=== PATIENT | male | born 1945 | race Caucasian/White ===

== ENCOUNTER 2019-06-13 06:25 | Day surgery (SDC) | payer MEDICARE ==
[~2019-06-13] VITALS: Ht 175.3 cm; Wt 107.1 kg
[2019-06-13] MEDS ORDERED: BACL10 PO (07:02)
[2019-06-13] MEDS ORDERED: LISI5 (07:03)
[2019-06-13] MEDS ORDERED: METO25ER (07:03)
[2019-06-13] MEDS ORDERED: Lasix20 MG PO (07:03)
[2019-06-13] MEDS ORDERED: POTA10T PO (07:03)
[2019-06-13] MEDS ORDERED: Norco 10-325 T1 EACH (07:04)
[2019-06-13] MEDS ORDERED: CLOP75 PO (07:04)
[2019-06-13] MEDS ORDERED: SIMV80 PO (07:04)
== END 2019-06-13 08:28 | disposition home or self-care (01) ==
LOC: ORSCSDS 06:25
PROVIDERS: Orthopaedic Surgery
PROC: 01N50ZZ Release Median Nerve, Open Approach (ICD-10-PCS; principal; 2019-06-13 07:30)
DX: G56.01 Carpal tunnel syndrome, right upper limb (principal); I25.10 Atherosclerotic heart disease of native coronary artery without angina pectoris; E66.9 Obesity, unspecified; Z68.34 Body mass index [BMI] 34.0-34.9, adult; Z79.01 Long term (current) use of anticoagulants; Z79.899 Other long term (current) drug therapy
CPT/HCPCS: J2250; J2704; J3010; J7120

== ENCOUNTER 2019-07-23 08:20 | Inpatient (IN) | payer MEDICARE ==
[~2019-07-23] VITALS: Ht 175.3 cm; Wt 102.9 kg
[~2019-07-23 08:20] MED LIST: BACL10 PO; CLOP75 PO; LISI5 PO; Lasix20 MG PO; METO25ER PO; Norco 10-325 T1 EACH PO; POTA10T PO; SIMV80 PO
[2019-07-23] MEDS ORDERED: Aspirin EC81 MG PO (08:40)
[2019-07-23] MEDS ORDERED: NITR.4SL SL (08:40)
[2019-07-23 08:44] LABS: Base Excess Venous -4.9 mmol/L; Bicarbonate Venous 20.5 mmol/L (24.0-30.0); PCO2 Venous 37.8 mmHg (38-42); PO2 Venous 51.2 mmHg (38-42); pH Blood Venous 7.35 (7.34-7.37)
[2019-07-23 08:45] LABS: BASOPHILS ABSOLUTE AUTO 0.04 K/mm3 (0.00-0.23); BASOPHILS PERCENT AUTO 0 % (0-2); EOSINOPHILS ABSOLUTE AUTO 0.18 K/mm3 (0.00-0.68); EOSINOPHILS PERCENT AUTO 2 % (0-6); Hematocrit 41.3 % (37.0-53.0); Hemoglobin 13.6 g/dL (13.5-17.5); IMMATURE GRAN ABSOLUTE AUTO 0.05 K/mm3 (0.00-0.10); IMMATURE GRAN PERCENT AUTO 0 % (0-1); LYMPHOCYTES ABSOLUTE AUTO 1.43 K/mm3 (0.84-5.20); LYMPHOCYTES PERCENT AUTO 12 % (21-46); MONOCYTES ABSOLUTE AUTO 1.18 K/mm3 (0.16-1.47); MONOCYTES PERCENT AUTO 10 % (4-13); Mean Corpuscular HGB 37.5 pg (26.0-34.0); Mean Corpuscular HGB Conc 32.9 g/dL (31.5-36.5); Mean Corpuscular Volume 114 fL (80-100); Mean Platelet Volume 9.9 fL (9.1-12.4); NEUTROPHILS ABSOLUTE AUTO 8.69 K/mm3 (1.96-9.15); NEUTROPHILS PERCENT AUTO 75 % (41-73); Platelet Count 137 K/mm3 (150-400); RDW Coefficient Variation 13.2 % (11.7-14.2); RDW Standard Deviation 56.2 fL (35.1-46.3); Red Blood Cell Count 3.63 M/mm3 (4.30-5.90); White Blood Cell Count 11.57 K/mm3 (4.00-11.30)
[2019-07-23 09:01] LABS: Alanine Aminotransfer (ALT/SGP 22 U/L (12-78); Albumin, Blood 3.3 g/dL (3.4-5.0); Albumin/Globulin Ratio 0.9 (0.8-1.8); Alk Phos 100 U/L (50-136); Anion Gap 9 mmol/L (6-16); Aspartate Aminotrans (AST/SGOT 32 U/L (12-37); Bilirubin, Total 2.8 mg/dL (0.1-1.0); Blood Urea Nitrogen 37 mg/dL (8-24); Bun/Creatinine Ratio 30.3 (12.0-20.0); CO2, Blood 21 mmol/L (21-32); Calcium, Blood 8.3 mg/dL (8.5-10.1); Chloride, Blood 113 mmol/L (98-108); Creatinine, Blood 1.22 mg/dL (0.60-1.20); Globulin, Blood 3.7 g/dL (2.2-4.0); Glomerular Filtration Rate >60 (60-); Glucose, Blood 125 mg/dL (70-99); Potassium, Blood 4.9 mmol/L (3.5-5.5); Sodium, Blood 143 mmol/L (136-145); Troponin I 0.366 ng/mL (0.000-0.040)
[2019-07-23] MEDS ORDERED: TRIDERM28.4 GM TOP (11:56)
--- NOTE | 2019-07-23 13:22 | NUR ---
PT ARRIVED TO THE ROOM AT APPROXIMATELY 1250. PT ALERT AND ORIENTED. FAMILY PRESENT FOR SUPPORT. VSS. PT ON BIPAP AND APPEARS TO BE TOLERATING WELL. WILL CONTINUE TO MONITOR.
--- NOTE | 2019-07-23 14:59 | NUR ---
DR. DE LA ROSA NOTIFIED OF TROPONIN OF 0.421. PT DENIES CHEST PAIN. WILL CONTINUE TO MONITOR.
--- NOTE | 2019-07-23 15:22 | NUR ---
AFTERNOON ASSESSMENT NO CHANGES TO REPORT SINCE INITIAL ASSESSMENT. PT REMAINS ON BIPAP. WILL CONTINUE TO MONITOR.
--- NOTE | 2019-07-23 18:20 | NUR ---
SHIFT SUMMARY PT HAS IMPROVED SINCE ARRIVING TO THE UNIT. HE HAS BEEN ABLE TO COME OFF BIPAP FOR MEALS AND WHILE VISITING WITH FAMILY. PT REQUIES HIGH FLOW 02 WHEN OFF BIPAP. PT WILL CONTINUE TO NEED BIPAP WHILE SLEEPING. PT TOLERATE THE BIPAP WELL. PT HAS VOIDED WELL THIS SHIFT AND IS USING THE URINAL. PT IS ABLE TO INDEPENDENTLY REPOSITION HIMSELF IN BED. FAMILY HAS BEEN PRESENT FOR SUPPORT. VSS. WILL MONITOR UNTIL REPORT TO ONCOMING RN.
[2019-07-24 04:04] LABS: BASOPHILS ABSOLUTE AUTO 0.02 K/mm3 (0.00-0.23); BASOPHILS PERCENT AUTO 0 % (0-2); EOSINOPHILS ABSOLUTE AUTO 0.19 K/mm3 (0.00-0.68); EOSINOPHILS PERCENT AUTO 2 % (0-6); Hematocrit 34.1 % (37.0-53.0); Hemoglobin 11.5 g/dL (13.5-17.5); IMMATURE GRAN ABSOLUTE AUTO 0.03 K/mm3 (0.00-0.10); IMMATURE GRAN PERCENT AUTO 0 % (0-1); LYMPHOCYTES ABSOLUTE AUTO 1.41 K/mm3 (0.84-5.20); LYMPHOCYTES PERCENT AUTO 16 % (21-46); MONOCYTES ABSOLUTE AUTO 1.16 K/mm3 (0.16-1.47); MONOCYTES PERCENT AUTO 13 % (4-13); Mean Corpuscular HGB 37.2 pg (26.0-34.0); Mean Corpuscular HGB Conc 33.7 g/dL (31.5-36.5); Mean Platelet Volume 10.7 fL (9.1-12.4); NEUTROPHILS PERCENT AUTO 68 % (41-73); Platelet Count 113 K/mm3 (150-400); RDW Coefficient Variation 13.5 % (11.7-14.2); RDW Standard Deviation 54.8 fL (35.1-46.3); Red Blood Cell Count 3.09 M/mm3 (4.30-5.90); White Blood Cell Count 8.81 K/mm3 (4.00-11.30)
[2019-07-24 04:15] LABS: Mean Corpuscular Volume 110 fL (80-100)
[2019-07-24 04:29] LABS: Anion Gap 8 mmol/L (6-16); Blood Urea Nitrogen 42 mg/dL (8-24); Bun/Creatinine Ratio 34.7 (12.0-20.0); CO2, Blood 23 mmol/L (21-32); Calcium, Blood 8.2 mg/dL (8.5-10.1); Chloride, Blood 109 mmol/L (98-108); Creatinine, Blood 1.21 mg/dL (0.60-1.20); Glomerular Filtration Rate >60 (60-); Glucose, Blood 106 mg/dL (70-99); Potassium, Blood 4.4 mmol/L (3.5-5.5); Sodium, Blood 140 mmol/L (136-145)
--- NOTE | 2019-07-24 06:33 | NUR ---
SHIFT SUMMARY PATIENT PLEASENT AND COOPERATIVE THROUGHOUT THE NIGHT. PATIENT APPEARED TO SLEEP WELL LAST NIGHT. PATIENT ON ARIVO WHILE AWAKE AND WAS ON THE BIPAP WITH CPAP SETTINGS. PATIENT REPORTS THAT HE FEELS HIS BREATHING IS FEELING MUCH BETTER TONIGHT. PATIENT CURRENTLY APPEARS TO BE SLEEPING. WILL CONTINUE TO MONITOR PATIENT AND REPORT TO ONCOMING RN.
--- NOTE | 2019-07-24 11:43 | NUR ---
Echocardiogram completed.
--- NOTE | 2019-07-24 11:55 | NUR ---
ASSUMED CARE APPROXIMATELY 0700; PT A&O X4; PLEASANT AND COMPLIANT; PT ON AIRVO W/ O2 SATS >93; RESPIRATORY THERAPIST IN TO CHECK SETTINGS; PT STATES HE HAS VASCULAR DISEASE; PT SLEEPING BETWEEN INTERVENTIONS; CALL LIGHT IN REACH; BED IN LOWEST POSITION; WILL CONTINUE TO MONITOR CLOSELY
--- NOTE | 2019-07-24 18:04 | NUR ---
SHIFT SUMMARY PT A&O; PT ON AIRVO SETTINGS MANAGED BY RESPIRATORY THERAPY; PT HAS SLEPT MUCH OF THE DAY AND STATES HE IS TIRED; PT REFUSED TO GET UP TO RECLINER; USES URINAL IN BED; PT ENCOURAGED TO GET UP TO BSC AND INCREASE TO AMBULATING TO BATHROOM; PT STATED HE WOULD TRY THAT TOMORROW; PT STATES HE HAS CHRONIC BACK AND JOINT PAIN; MEDICATED PER EMAR AND AGAIN ENCOURAGED TO REPOSITION; CALL LIGHT IN REACH; BED IN LOWEST POSITION; WILL CONTINUE TO MONITOR UNTIL HAND OFF TO NOC RN
--- NOTE | 2019-07-25 05:39 | NUR ---
END OF SHIFT SUMMARY NO ACUTE CHANGES THIS SHIFT. VSS. PT REMAINS ON AIRVO, 30L. 58% FIO2. BREATHING EASILY. PT DENIES CP. PT HAS BEEN USING URINAL. HAS BEEN RESTING IN BED QUIETLY FOR MAJORITY OF SHIFT. HAS USED CALL LIGHT APPROPRIATELY. WILL CONTINUE TO MONITOR UNTIL SHIFT CHANGE.
--- NOTE | 2019-07-25 09:58 | NUR ---
ASSUMED CARE APPROXIMATELY 0700; PT A&O; DENIES CHEST PAIN; C/O CHRONIC BACK PAIN; PT REPOSITIONED AND MEDICATED PER EMAR; AT BEDSIDE; MEAL TRAY ORDERED FOR PT; PT ENCOURAGED TO AMBULATE; PT DENIES NEEDS AT THIS TIME; CALL LIGHT IN REACH; BED IN LOWEST POSITION; WILL CONTINUE TO MONITOR CLOSELY
--- NOTE | 2019-07-25 19:38 | NUR ---
PT A&O X4; SITTING IN RECLINER; PT ON 13L HIGH FLOW NC; O2 SATS >92; RESPIRATORY THERAPY TO BEDSIDE TO ASSIST W/ NC SETTINGS; PT DENIES CHEST PAIN; DENIES NEEDS AT THIS TIME; CALL LIGHT IN REACH; HAND OFF GIVEN TO NOC RN
--- NOTE | 2019-07-25 21:48 | NUR ---
ASSUMED CARE OF PATIENT AT APPROXIMATELY 1900 FROM WALE Barrett RN. PATIENT ALERT AND ORIENTED X4. PATIENT REPORTS CHRONIC PAIN IN HIS SHOULDERS, KNEES AND BACK; MEDICATED PER EMAR. PATIENT SITTING IN RECLINER DURING BEDSIDE REPORT. PATIENT DENIES NUMBNESS, TINGLING, DIZZINESS AND NAUSEA. PATIENT REPORTS HE WILL SLEEP IN RECLINER TONIGHT. NSR W/ PAC ON TELE; OXYGEN SATURATION ABOVE 90% ON 13LPM VIA HF NC OR AIRVO. DYSPNEA WITH ACTIVITY; REPORTS BLOOD TINGED SPUTUM SINCE BEFORE ADMIT; OXYGEN SATURATION DROPS WITH AMBULATION. PATIENT USES URINAL CHAIRSIDE. PIV X2 S/L. PATIENT CURRENTLY RESTING IN RECLINER; CALL LIGHT IN REACH; BED IN LOWEST POSISTION; WILL CONTINUE TO MONITOR AND ASSESS UNTIL END OF SHIFT.
[2019-07-26 04:43] LABS: Hematocrit 33.1 % (37.0-53.0); Mean Corpuscular HGB 36.8 pg (26.0-34.0); Mean Corpuscular HGB Conc 33.2 g/dL (31.5-36.5); Mean Corpuscular Volume 111 fL (80-100); Mean Platelet Volume 10.3 fL (9.1-12.4); Platelet Count 123 K/mm3 (150-400); RDW Coefficient Variation 12.9 % (11.7-14.2); Red Blood Cell Count 2.99 M/mm3 (4.30-5.90); White Blood Cell Count 8.04 K/mm3 (4.00-11.30)
[2019-07-26 04:59] LABS: Anion Gap 8 mmol/L (6-16); Blood Urea Nitrogen 44 mg/dL (8-24); Bun/Creatinine Ratio 38.3 (12.0-20.0); CO2, Blood 26 mmol/L (21-32); Chloride, Blood 106 mmol/L (98-108); Creatinine, Blood 1.15 mg/dL (0.60-1.20); Glomerular Filtration Rate >60 (60-); Glucose, Blood 107 mg/dL (70-99); Potassium, Blood 3.9 mmol/L (3.5-5.5); Sodium, Blood 140 mmol/L (136-145)
--- NOTE | 2019-07-26 06:22 | NUR ---
PATIENT SLEPT ABOUT EIGHT HOURS LAST NIGHT IN THE RECLINER. VSS. NO ACUTE CHANGES TO REPORT. WILL CONTINUE TO MONITOR AND ASSESS UNTIL END OF SHIFT.
--- NOTE | 2019-07-26 19:34 | NUR ---
SHIFT SUMMARY PT A&Ox4, CALM AND COOPERATIVE WITH CARE. PT UP IN CHAIR T/O SHIFT, APPEARS TO BE SLEEPING INTERMITTENTLY. PT REPORTS BACK PAIN THIS AM, MEDICATED x1 PER EMAR. PT SOB WITH EXERTION, STARTED ON 13L O2 VIA NC , TITERATED TO 10L O2 VIA NC T/O SHIFT, PT TOLERATING WELL, SPO2 >90 T/O SHIFT. PT DENIES NAUSEA AND DIZZINESS. PT RECEIVING IV LASIX. VSS. NO OTHER ACUTE CHANGES NOTED DURING SHIFT. REPORT GIVEN TO ONCOMING RN.
--- NOTE | 2019-07-26 20:57 | NUR ---
ASSUMED CARE Assumed care of pt at approx 1915; pt presents resting in recliner, breathing even and unlabored on 10 humidified HF NC. Pt conversing appropriately with staff, alert and oriented. VSS. Pt complains of 7/10 pain "all over my body". Pt repositioned to comfort and medicated with [place] per emar. Pt also complains of "muscle spasms in my back", heating pad offerend and applied to pt's back with mild relief, baclofan given per emar. No acute concerns to note at this time. Pt calls appropriately with call light, able to make needs known. See shift assessment for detailed systems assessment. Will continue to monitor.
[2019-07-27 04:19] LABS: Anion Gap 6 mmol/L (6-16); Blood Urea Nitrogen 49 mg/dL (8-24); Bun/Creatinine Ratio 39.5 (12.0-20.0); CO2, Blood 26 mmol/L (21-32); Calcium, Blood 7.9 mg/dL (8.5-10.1); Chloride, Blood 105 mmol/L (98-108); Creatinine, Blood 1.24 mg/dL (0.60-1.20); Glomerular Filtration Rate >60 (60-); Glucose, Blood 96 mg/dL (70-99); Sodium, Blood 137 mmol/L (136-145)
--- NOTE | 2019-07-27 05:02 | NUR ---
Shift Summary VSS, no apparent signs of distress, remains alert and oriented, able to make needs known with call light, voids in urinal ind. No acute declines to note from initial shift assessment. Pt remains on hiflow NC at 10L with oxygen sats >95%. No chest pain or pressure. pt with continued harsh cough throughout night. Breathing remains even and unlabored. No concerns to note from overnight. CXR ordered for this AM. Will continue to monitor until day RN assumes care.
--- NOTE | 2019-07-27 10:42 | NUR ---
PT HAS BEEN TRANSFERED TO [facility], HAS A ROOM 340. REPORT WAS GIVEN TO CHEYANNE DUNN, PT WILL BE TAKEN VIA WHEELCHAIR WITH ALL HIS BELONGINGS.
--- NOTE | 2019-07-27 18:19 | NUR ---
SHIFT SUMMARY. 1115 PT TRANSFERED FROM PCU VIA W/C TO MEDICAL FLOOR. A&OX4, INDEPENDENT IN ROOM. PT ON 10L O2 VIA HIGH FLOW NC, PT DENIES DYSPNEA. PT DENIES N/V, GOOD PO INTAKE. PT WITH CHRONIC BACK PAIN MANAGED WELL WITH CURRENT ORDERS. FAMILY AT BEDSIDE THIS AFTERNOON. DR. FUNK IN TO CONSULT THIS AFTERNOON. NO NEW CHANGES OR CONCERNS.
--- NOTE | 2019-07-27 23:19 | NUR ---
07/27/19 2315 PT HAVING COUGHING EPISODES IN WHICH HE CANNOT REST. WAS NOTIFIED EARLIER AND THEN ORDERED MED. SEE MAR FOR COUGH LOZENGE GIVEN. NO OTHER COMPLAINTS.
[2019-07-28 05:14] LABS: BASOPHILS ABSOLUTE AUTO 0.03 K/mm3 (0.00-0.23); BASOPHILS PERCENT AUTO 0 % (0-2); EOSINOPHILS PERCENT AUTO 4 % (0-6); Hematocrit 32.7 % (37.0-53.0); Hemoglobin 10.9 g/dL (13.5-17.5); IMMATURE GRAN ABSOLUTE AUTO 0.01 K/mm3 (0.00-0.10); IMMATURE GRAN PERCENT AUTO 0 % (0-1); LYMPHOCYTES ABSOLUTE AUTO 1.05 K/mm3 (0.84-5.20); LYMPHOCYTES PERCENT AUTO 15 % (21-46); MONOCYTES ABSOLUTE AUTO 0.98 K/mm3 (0.16-1.47); MONOCYTES PERCENT AUTO 14 % (4-13); Mean Corpuscular HGB 36.6 pg (26.0-34.0); Mean Corpuscular HGB Conc 33.3 g/dL (31.5-36.5); Mean Corpuscular Volume 110 fL (80-100); Mean Platelet Volume 10.6 fL (9.1-12.4); NEUTROPHILS PERCENT AUTO 66 % (41-73); Platelet Count 133 K/mm3 (150-400); RDW Coefficient Variation 12.9 % (11.7-14.2); RDW Standard Deviation 52.3 fL (35.1-46.3); Red Blood Cell Count 2.98 M/mm3 (4.30-5.90); White Blood Cell Count 6.97 K/mm3 (4.00-11.30)
[2019-07-28 05:41] LABS: Alanine Aminotransfer (ALT/SGP 26 U/L (12-78); Albumin, Blood 2.5 g/dL (3.4-5.0); Albumin/Globulin Ratio 0.6 (0.8-1.8); Alk Phos 131 U/L (50-136); Anion Gap 8 mmol/L (6-16); Aspartate Aminotrans (AST/SGOT 40 U/L (12-37); Bilirubin, Total 1.5 mg/dL (0.1-1.0); Blood Urea Nitrogen 46 mg/dL (8-24); CO2, Blood 24 mmol/L (21-32); Calcium, Blood 8.2 mg/dL (8.5-10.1); Chloride, Blood 105 mmol/L (98-108); Creatinine, Blood 1.07 mg/dL (0.60-1.20); Glomerular Filtration Rate >60 (60-); Glucose, Blood 106 mg/dL (70-99); Potassium, Blood 4.3 mmol/L (3.5-5.5); Sodium, Blood 137 mmol/L (136-145); Total Protein, Blood 6.5 g/dL (6.4-8.2)
--- NOTE | 2019-07-28 06:31 | NUR ---
07/28/19 0630 SITTING UP IN CHAIR AND "FEELING GOOD". PAIN MED "HELPED A LOT" TO CONTROL HIS PAIN. VITALS STABLE. TAKING ORAL FLUIDS WELL. UNEVENTFUL NIGHT.
--- NOTE | 2019-07-28 15:01 | NUR ---
Initial Visit: Palliative Care Consult for Advanced Care Planning. Pt is A&OX4 and denies pain at this time. He reports mild but manageable dyspnea. He reports oxygen is helping with management of SOB. Pt coughing intermittently throughout visit. Pt reports mild but manageable anxiety. Engaged in therapeutic discussion regarding Advanced Care Planning. Pt reports living at home with his and son. He reports his is bed bount who requires considerable assistance with her care. Pt reports being the primary caregiver for Pt but receives help from his son. Discussed plan for Pt to F/U with workforce planning analyst as out Pt. Educated on the importance of routine discussion with PCP and specialists regarding health and comorbidities in order to plan accordingly. Discussed POLST and Advanced Directives. Pt expresses interest in both. Educated on life sustaining measures including risk factors. Pt requests to complete POLST today and will complete Advanced Directive at home with his daughter. Assisted Pt with completing POLST. Pt V/U of each choice. Pt chooses DNR and Limited Treatment. Pt signs POLST. Educated Pt on each section to complete on AD and options for making AD official including notary and witness signatures. Pt reports he will complete at home with his daughter. No other concerns reported at this time. Spoke with bedside nurse Rosales and discussed case. Palliative Care will obtain copy of POLST once signed by .
--- NOTE | 2019-07-28 16:13 | NUR ---
SHIFT SUMMARY. PT CONTINUES WITH DRY COUGH. LUNGS CLEAR. TITRATED DOWN TO 2L NC BY END OF SHIFT. HOME O2 EVAL COMPLETED. DR. FUNK ROUNDED THIS AFTERNOON. NO OTHER CHANGES OR CONCERNS.
--- NOTE | 2019-07-28 19:41 | NUR ---
SHIFT SUMMARY: NO ACUTE CHANGES TO REPORT THIS SHIFT. PT A&O; CALM AND COOPERATIVE WITH CARE; INDEPENDENT IN ROOM. O2 TITRATED TO 2L THIS SHIFT; PT TOLERATING WELL. PULMONOLOGY FOLLOWING. EXPECTED D/C TO HOME 07/29. REPORT GIVEN TO ONCOMING RN.
[2019-07-29 04:57] LABS: Anion Gap 7 mmol/L (6-16); Blood Urea Nitrogen 42 mg/dL (8-24); Bun/Creatinine Ratio 45.3 (12.0-20.0); CO2, Blood 24 mmol/L (21-32); Calcium, Blood 8.4 mg/dL (8.5-10.1); Chloride, Blood 105 mmol/L (98-108); Creatinine, Blood 0.93 mg/dL (0.60-1.20); Glomerular Filtration Rate >60 (60-); Glucose, Blood 93 mg/dL (70-99); Potassium, Blood 4.5 mmol/L (3.5-5.5); Sodium, Blood 136 mmol/L (136-145)
--- NOTE | 2019-07-29 05:49 | NUR ---
SHIFT SUMMARY PT IS A 74 Y/O MALE, ADMITTED FOR ACUTE HYPOXEMIC RESPIRATORY FAILURE. HE IS A&O X 4, AND INDEPENDENT IN THE ROOM. PT IS CURRENTLY ON 2L OF O2 VIA NC, AND SATTING IN THE MID 90S. VITALS STABLE. PT HAD A COARSE, PRODUCTIVE COUGH THROUGH THE NIGHT. HE WAS MEDICATED TWICE WITH PRN HYDROCODONE FOR CHRONIC NECK AND BACK PAIN. NO COMPLAINTS OF ACUTE SOB OR NAUSEA. VITAL SIGNS STABLE. NO OTHER ACUTE CHANGES IN PT CONDITION NOTED. WILL CONTINUE TO MONITOR AND TREAT PER EMAR UNTIL HAND OFF TO DAY SHIFT RN.
[2019-07-29] MEDS ORDERED: LOSA25 PO (10:09)
[2019-07-29] MEDS ORDERED: ALDACTONE25 MG PO (10:10)
[2019-07-29] MEDS ORDERED: AIRDUO RESPICL1 EAC3 INH (10:10)
--- NOTE | 2019-07-29 15:17 | NUR ---
Discharge Summary A/Ox3, pleasant and cooperative with care. Reviewed discharge paperwork and educational materials with patient and daughter (Adriana). Meds faxed to [facility], spironolactone called in to [facility] d/t it being unavailable at [facility] until Wednesday, patient and family aware. Pt discharged to home, escorted via w/c by MEDICAL DEVICE ASSEMBLER, transported by personal vehicle by daughter. They had no questions for me at this time. Personal belongings sent home with patient.
== END 2019-07-29 15:17 | disposition home or self-care (01) | DRG 291 ==
LOC: ER 08:20 → PCU 10:20 → ICUW 10:49 → PCU 12:53 → MEDS 07-27 11:15 → ENPENDDIS 07-29 10:02 → MEDS 07-29 15:17
PROVIDERS: Emergency Medicine; Internal Medicine; ADMIT Internal Medicine
DX: I11.0 Hypertensive heart disease with heart failure (principal); I50.31 Acute diastolic (congestive) heart failure; J96.01 Acute respiratory failure with hypoxia; J44.1 Chronic obstructive pulmonary disease with (acute) exacerbation; E44.1 Mild protein-calorie malnutrition; I25.10 Atherosclerotic heart disease of native coronary artery without angina pectoris; I67.9 Cerebrovascular disease, unspecified; I70.8 Atherosclerosis of other arteries; D50.9 Iron deficiency anemia, unspecified; E78.5 Hyperlipidemia, unspecified; E88.09 Other disorders of plasma-protein metabolism, not elsewhere classified; M19.90 Unspecified osteoarthritis, unspecified site; Z66 Do not resuscitate; Z95.1 Presence of aortocoronary bypass graft; Z87.891 Personal history of nicotine dependence; Z79.02 Long term (current) use of antithrombotics/antiplatelets; Z79.82 Long term (current) use of aspirin; Z79.899 Other long term (current) drug therapy; Z68.33 Body mass index [BMI] 33.0-33.9, adult
CPT/HCPCS: 36415; 71045; 71260; 80048; 80053; 82607; 82728; 82746; 82803; 83540; 83550; 83880; 84145; 84484; 85025; 85027; 93005; 93010; 93306; 94640; 94660; 94760; 94761; 94762; 96374; 99285-25; J1650; J1940; Q9967

== ENCOUNTER → 2020-04-17 | Outpatient (CLI) | payer OTHER ==
[~2020-04-17] MED LIST changes: +AIRDUO RESPICL1 EAC3 INH; +ALDACTONE25 MG PO; +Aspirin EC81 MG PO; +LOSA25 PO; +NITR.4SL SL; +TRIDERM28.4 GM TOP
[2020-04-18 11:11] LABS: U Amphetamine Screen Not Detected; U Barbituate Screen Not Detected; U Benzodiazapine Screen Not Detected; U Cocaine Screen Not Detected; U Methadone Screen Not Detected; U Methamphetamine Screen Not Detected; U Opiates Screen DETECTED
[2020-04-18 11:12] LABS: U Buprenorphine Screen Not Detected; U Cannabinoids Screen Not Detected; U Oxycodone Screen Not Detected; U Phencyclidine Screen Not Detected; U Propoxyphene Screen Not Detected
== END | disposition home or self-care (01) ==
LOC: LAB SHORT 09:06 → LAB 09:06
PROVIDERS: Internal Medicine Hematology & Oncology
DX: Z51.81 Encounter for therapeutic drug level monitoring (principal); Z79.899 Other long term (current) drug therapy; Z91.89 Other specified personal risk factors, not elsewhere classified
CPT/HCPCS: G0480

== ENCOUNTER → 2020-05-19 | Outpatient (CLI) | payer OTHER ==
[2020-05-19 14:28] LABS: BASOPHILS ABSOLUTE AUTO 0.04 K/mm3 (0.00-0.23); BASOPHILS PERCENT AUTO 1 % (0-2); EOSINOPHILS ABSOLUTE AUTO 0.39 K/mm3 (0.00-0.68); EOSINOPHILS PERCENT AUTO 7 % (0-6); Hematocrit 32.1 % (37.0-53.0); Hemoglobin 11.1 g/dL (13.5-17.5); IMMATURE GRAN ABSOLUTE AUTO 0.01 K/mm3 (0.00-0.10); IMMATURE GRAN PERCENT AUTO 0 % (0-1); LYMPHOCYTES ABSOLUTE AUTO 1.23 K/mm3 (0.84-5.20); LYMPHOCYTES PERCENT AUTO 23 % (21-46); MONOCYTES ABSOLUTE AUTO 0.61 K/mm3 (0.16-1.47); MONOCYTES PERCENT AUTO 11 % (4-13); Mean Corpuscular HGB 39.2 pg (26.0-34.0); Mean Corpuscular HGB Conc 34.6 g/dL (31.5-36.5); Mean Corpuscular Volume 113 fL (80-100); Mean Platelet Volume 10.7 fL (9.1-12.4); NEUTROPHILS ABSOLUTE AUTO 3.06 K/mm3 (1.96-9.15); NEUTROPHILS PERCENT AUTO 57 % (41-73); Platelet Count 117 K/mm3 (150-400); RDW Coefficient Variation 13.3 % (11.7-14.2); RDW Standard Deviation 55.1 fL (35.1-46.3); Red Blood Cell Count 2.83 M/mm3 (4.30-5.90); White Blood Cell Count 5.34 K/mm3 (4.00-11.30)
[2020-05-19 14:31] LABS: Bun/Creatinine Ratio 27.5 (12.0-20.0); Calcium, Blood 8.6 mg/dL (8.5-10.1); Creatinine, Blood 1.6 mg/dL (0.60-1.20); Potassium, Blood 4.6 mmol/L (3.5-5.5)
== END | disposition home or self-care (01) ==
LOC: LAB SHORT 14:21 → LAB EV 14:21
PROVIDERS: Physician Assistant Medical
DX: R60.0 Localized edema (principal)
CPT/HCPCS: 80048; 85025; 85379

== ENCOUNTER → 2020-11-28 | Outpatient (CLI) | payer OTHER ==
[2020-11-28 19:29] LABS: U Amphetamine Screen Not Detected; U Barbituate Screen Not Detected; U Benzodiazapine Screen Not Detected; U Buprenorphine Screen Not Detected; U Cannabinoids Screen Not Detected; U Cocaine Screen Not Detected; U Methadone Screen Not Detected; U Methamphetamine Screen Not Detected; U Opiates Screen DETECTED; U Oxycodone Screen Not Detected; U Phencyclidine Screen Not Detected; U Propoxyphene Screen Not Detected
== END ==
LOC: LAB SHORT 17:30 → LAB 17:30
PROVIDERS: Internal Medicine Hematology & Oncology
DX: Z51.81 Encounter for therapeutic drug level monitoring (principal); Z79.899 Other long term (current) drug therapy
CPT/HCPCS: G0480

== ENCOUNTER 2021-05-05 04:49 | Inpatient (IN) | payer OTHER ==
[~2021-05-05] VITALS: Ht 175.3 cm; Wt 97.0 kg
[2021-05-05 05:30] LABS: BASOPHILS ABSOLUTE AUTO 0.04 K/mm3 (0.00-0.23); BASOPHILS PERCENT AUTO 0 % (0-2); EOSINOPHILS ABSOLUTE AUTO 0.02 K/mm3 (0.00-0.68); EOSINOPHILS PERCENT AUTO 0 % (0-6); Hematocrit 36.4 % (37.0-53.0); Hemoglobin 12.2 g/dL (13.5-17.5); IMMATURE GRAN ABSOLUTE AUTO 0.15 K/mm3 (0.00-0.10); IMMATURE GRAN PERCENT AUTO 2 % (0-1); LYMPHOCYTES ABSOLUTE AUTO 1.41 K/mm3 (0.84-5.20); LYMPHOCYTES PERCENT AUTO 15 % (21-46); MONOCYTES ABSOLUTE AUTO 0.41 K/mm3 (0.16-1.47); MONOCYTES PERCENT AUTO 4 % (4-13); Mean Corpuscular HGB 38.6 pg (26.0-34.0); Mean Corpuscular HGB Conc 33.5 g/dL (31.5-36.5); Mean Corpuscular Volume 115 fL (80-100); Mean Platelet Volume 12.1 fL (9.1-12.4); NEUTROPHILS ABSOLUTE AUTO 7.22 K/mm3 (1.96-9.15); NEUTROPHILS PERCENT AUTO 78 % (41-73); NRBC ABSOLUTE 0.05 K/mm3 (0.00-0.02); NRBC Auto 0.5 /100 WBC (0.0-0.2); Platelet Count 128 K/mm3 (150-400); RDW Coefficient Variation 14.3 % (11.7-14.2); RDW Standard Deviation 62.1 fL (35.1-46.3); Red Blood Cell Count 3.16 M/mm3 (4.30-5.90); White Blood Cell Count 9.25 K/mm3 (4.00-11.30)
[2021-05-05 05:57] LABS: BAND PERCENT MAN 9 % (0-8); BASOPHILS PERCENT MAN 0 % (0-2); EOSINOPHILS PERCENT MAN 0 % (0-6); LYMPHOCYTES % ATYPICAL MANUAL 1 % (0-0); LYMPHOCYTES PERCENT MAN 12 % (21-46); MONOCYTES ABSOLUTE MAN 0.09 K/mm3 (0.16-1.47); MONOCYTES PERCENT MAN 1 % (4-13); NEUTROPHILS ABSOLUTE MAN 7.95 K/mm3 (1.96-9.15); SEG NEUTROPHILS PERCENT MAN 77 % (41-73); TOTAL CELLS COUNTED 100
[2021-05-05 06:00] LABS: SARS-Cov-2 (COVID-19) PCR, MMC POSITIVE (NEGATIVE)
[2021-05-05 06:31] LABS: Alanine Aminotransfer (ALT/SGP 50 U/L (12-78); Albumin, Blood 2.8 g/dL (3.4-5.0); Albumin/Globulin Ratio 0.6 (0.8-1.8); Alk Phos 139 U/L (50-136); Anion Gap 18 mmol/L (6-16); Aspartate Aminotrans (AST/SGOT 232 U/L (12-37); Bilirubin, Total 2.6 mg/dL (0.1-1.0); Blood Urea Nitrogen 62 mg/dL (8-24); Bun/Creatinine Ratio 30.4 (12.0-20.0); C-REACTIVE PROTEIN, EXT RANGE >19.000 mg/dL (0.000-0.300); CO2, Blood 14 mmol/L (21-32); Calcium, Blood 8.7 mg/dL (8.5-10.1); Chloride, Blood 99 mmol/L (98-108); Creatinine, Blood 2.04 mg/dL (0.60-1.20); Globulin, Blood 4.4 g/dL (2.2-4.0); Glomerular Filtration Rate 32 (60-); Glucose, Blood 125 mg/dL (70-99); Potassium, Blood 4.7 mmol/L (3.5-5.5); Sodium, Blood 131 mmol/L (136-145); Total Protein, Blood 7.2 g/dL (6.4-8.2)
[2021-05-05 06:38] LABS: International Normalized Ratio 1.41; Prothrombin Time Results 14.9 Sec (9.7-11.5)
--- NOTE | 2021-05-05 09:55 | NUR ---
Placed call to pt's daughter Adriana after speaking to bedside RN regarding pt's current status. The patient is here with Covid, but at this time, his respiratory status is not the biggest issue. His troponin level is high, and he is very hypotensive. Adriana verbalizes understanding, and states she knows her dad's wishes; that he would not want aggressive treatment of any kind. She also states the patient has been declining since his last year, and believes he would prefer comfort care over aggressive treatment, as indicated by his DNR/DNI status. Dr. Cheung in to see patient about 30 minutes ago.
[2021-05-05 11:19] LABS: Source, Urine Catheter
[2021-05-05 12:01] LABS: Free Thyroxine 1.11 ng/dL (0.70-1.60); Thyroid Stimulating Hormone 0.45 uIU/mL (0.360-4.800); Triiodothyronine, Free 0.7 pg/mL (2.18-3.98)
[2021-05-05 12:14] LABS: Appearance, Urine Clear (Clear); Bilirubin, Urine Neg (Neg); Blood, Urine Neg (Neg); Color, Urine Yellow (P-Yellow); Glucose Qualitative, Urine Neg (Neg); Ketones, Urine 1+ (Neg); Leukocyte Esterase, Urine Neg (Neg); Nitrite, Urine Neg (Neg); Protein, Urine 1+ (Neg); Specific Gravity, Urine 1.025 (1.003-1.022); Urobilinogen, Urine 3+ (Normal)
[2021-05-05 12:26] LABS: Creatine Kinase MB 193.5 ng/mL (0.0-3.6)
[2021-05-05 12:33] LABS: Creatine Kinase MB Index 14.2 (0.0-4.0)
--- NOTE | 2021-05-05 15:53 | NUR ---
Echocardiogram performed.
--- NOTE | 2021-05-05 18:13 | NUR ---
SHIFT SUMMARY PT ALERT AND ORIENTED. HR HAS BEEN AFIB 90'S. BP STABLE AT THIS TIME, BUT HAS BEEN HYPOTENSIVE. PT HAS BEEN ON CPAP AT 10 AND 80% FIO2 WITH SATS RANGING FROM 88-93. LS DIM THROUGHOUT. RR 30-40. PT DENIES ANY PAIN. HEP GTT INFUSING PER ORDERS. PT HAS BEEN REPOSTIONED Q2H. DAUGHTER CALLED AND UPDATED THIS SHIFT REQUESTED. WILL CONTINUE TO MONITOR AND REPORT TO ONCOMING RN.
[2021-05-06 04:08] LABS: Hematocrit 33.3 % (37.0-53.0); Hemoglobin 11.7 g/dL (13.5-17.5); Mean Corpuscular HGB 38.5 pg (26.0-34.0); Mean Corpuscular HGB Conc 35.1 g/dL (31.5-36.5); NRBC ABSOLUTE 0.03 K/mm3 (0.00-0.02); NRBC Auto 0.4 /100 WBC (0.0-0.2); Platelet Count 101 K/mm3 (150-400); RDW Standard Deviation 55.9 fL (35.1-46.3); Red Blood Cell Count 3.04 M/mm3 (4.30-5.90)
[2021-05-06 04:19] LABS: Albumin, Blood 2.4 g/dL (3.4-5.0); Albumin/Globulin Ratio 0.6 (0.8-1.8); Bilirubin, Total 2.8 mg/dL (0.1-1.0); Bun/Creatinine Ratio 48.7 (12.0-20.0); Calcium, Blood 7.8 mg/dL (8.5-10.1); Creatinine, Blood 1.5 mg/dL (0.60-1.20); Phosphorus, Blood 3.3 mg/dL (2.5-4.9); Potassium, Blood 4.7 mmol/L (3.5-5.5); Total Protein, Blood 6.4 g/dL (6.4-8.2)
[2021-05-06 04:23] LABS: Troponin I 38.5 ng/mL (0.000-0.040)
[2021-05-06 04:29] LABS: Mean Corpuscular Volume 110 fL (80-100)
[2021-05-06 05:10] LABS: International Normalized Ratio 1.38; Prothrombin Time Results 14.6 Sec (9.7-11.5)
[2021-05-06 05:55] LABS: BAND PERCENT MAN 28 % (0-8); BASOPHILS PERCENT MAN 0 % (0-2); EOSINOPHILS PERCENT MAN 0 % (0-6); LYMPHOCYTES ABSOLUTE MAN 0.89 K/mm3 (0.84-5.20); LYMPHOCYTES PERCENT MAN 11 % (21-46); MONOCYTES PERCENT MAN 5 % (4-13); SEG NEUTROPHILS PERCENT MAN 56 % (41-73); TOTAL CELLS COUNTED 100
--- NOTE | 2021-05-06 06:53 | NUR ---
END OF SHIFT SUMMARY: PATIENT HAD A DECENT NIGHT OF REST. HE HAS BEEN IN AFIB IN THE 90-140S BUT MOSTLY CONTROLLED IN THE 90S. HE SUSTAINED IN THE 140S ONCE AND 5 OF METOPROLOL WAS GIVEN IV AND RESPONDED WELL. TROPONIN COMING DOWN. HE HAS HAD CRITICAL APPT X2 AND PHARM IS ASSISTING WITH THAT. CURRENTLY ON STANDBY UNTIL 629 APTT COMES BACK. REMAINS A/O X4. TOLERATING CURRENT CPAP SETTINGS
--- NOTE | 2021-05-06 09:07 | NUR ---
PHYSICIAN UPDATE PT COUGHING UP BLOOD THIS AM. DARK RED IN COLOR. PHYSICIAN IN ROOM, EXAMINED AMOUNT OF BLOOD IN PT'S MOUTH. PT SUCTIONED TO REMOVE BLOOD FROM MOUTH. ORDERS TO STOP HEPARIN GTT AT THIS TIME. PHYSICIAN AWARE OF PT'S LOW BP AFTER PO METOPROLOL YESTERDAY AM. ORDERS TO GIVE 6.25 MG OF METOPROLOL INSTEAD OF 12.5
[2021-05-06 09:54] LABS: Hematocrit 35.5 % (37.0-53.0); Hemoglobin 12.3 g/dL (13.5-17.5)
--- NOTE | 2021-05-06 11:12 | NUR ---
UPDATE DAUGHTER UPDATED
--- NOTE | 2021-05-06 11:47 | NUR ---
Spoke with care isbell and discussed case. Pt may benefit from discussion regarding goals of care. Pt has stated he is ready to go see his . last year. Pt resting in bed and is on BIPAP. Pt denies pain at this time. Engaged in therapeutic discussion regarding goals of care. Discussed options for treatment including continuing current plan of care or comfort care as an option. Educated on comfort care philosophy. Pt reports he would like to continue current plan of care in hopes of feeling better and going home. Pt reports no other concerns at this time. Relayed wishes to primary RN Bhakti. Bhakti will call Pt's daughter and give update. Palliative Care will remain available.
--- NOTE | 2021-05-06 14:14 | NUR ---
PHYSICIAN NOTIFIED PHYSICIAN AWARE THAT PT'S BNP IS HIGH. NO NEW ORDERS. PLAN TO TRACK.
[2021-05-06 15:27] LABS: Hematocrit 36.4 % (37.0-53.0); Hemoglobin 12.6 g/dL (13.5-17.5)
--- NOTE | 2021-05-06 18:29 | NUR ---
SHIFT SUMMARY\\ PT ALERT AND ORIENTED. PALLIATIVE CARE TO SEE PT THIS AM. PT DOES NOT WANT INVASIVE TREATMENTS. PHYSICIAN AWARE. UPON INITIAL ASSESSMENT THIS AM OF PT, PT HAD LARGE AMOUNT OF BLOOD AND DRIED BLOOD IN MOUTH. PHYSICIAN IN ROOM TO ASSESS. HEPARIN GTT STOPPED. THOROUGH ORAL CARE PROVIDED TO PT Q3-4 HRS. PT UNABLE TO TOLERATE BEING OFF CPAP. RT IN ROOM TO ASSIST IN ORAL CARE TO REMOVE DRIED BLOOD FROM PT'S MOUTH D/T PT DESATING. PT ENCOURAGED TO LAY ON SIDE/PRONE. PT REPORTED CP THIS AM. ORDERS FOR MORPHINE PER PHYSICIAN. PT STATED CP IS BETTER. PT REMOVED CPAP AND SAID "I WANT TO SEE HOW LONG I CAN LAST." PT ALERT AND UNDERSTANDING THAT HE DOES NOT HAVE ADEQUATE OXYGEN LEVELS WHEN REMOVING THE CPAP. STATES HE WILL LEAVE CPAP ON. WILLETT PATENT AND DRAINING. CALL LIGHT WITHIN REACH. PT DECLINES Q 2 TURNS AT TIMES. PT MEDICATED FOR HIGH HR, SEE EMAR. PHYSICIAN ORDER TO GIVE 2.5 MG OF IV METOPROLOL ONCE INSTEAD OF 5MG D/T PT BEING HYPOTENSIVE. MAP REMAINED ABOVE 65. OXYGEN SATURATION MAINTAINED ABOVE 92% ON CPAP AT 12 AND 90% FIO2.
--- NOTE | 2021-05-07 06:29 | NUR ---
PT MAINTAINED O2 SATS >92% ON CPAP W 90%-100% FIO2 THIS SHIFT. PT PULLED HIS MASK OFF SEVERAL TIMES AT THE START OF THE SHIFT RESULTING IN DESATS <60% BUT RECOVERED QUICKLY ONCE MASK PLACED BACK ON. PT HAD NO S/S OF BLEEDING THIS SHIFT. ORAL CARE PROVIDED THROUGHOUT THE SHIFT AND DESPITE AGGRESSIVELY TRYING I WAS UNABLE TO REMOVE ALL OF THE BLOOD FROM THE PT'S TEETH FROM THE PREVIOUS NIGHT. TELE SHOWING AFIB IN THE 130'S SO IV LOPRESSOR GIVEN AND PT'S HR REMAINED IN THE 80'S. PT DENIED ANY CP OR PRESSURE THIS SHIFT. BP WNL AND STABLE THIS SHIFT. PT IS AXO BUT HAD MOMENTS OF CONFUSION THROUGHOUT THE SHIFT. WILL REPORT TO ONCOMING RN.
[2021-05-07 09:10] LABS: Hematocrit 36.3 % (37.0-53.0); Hemoglobin 12.4 g/dL (13.5-17.5); Mean Corpuscular HGB 37.8 pg (26.0-34.0); Mean Corpuscular HGB Conc 34.2 g/dL (31.5-36.5); Mean Corpuscular Volume 111 fL (80-100); Mean Platelet Volume 12.3 fL (9.1-12.4); NRBC ABSOLUTE 0.18 K/mm3 (0.00-0.02); NRBC Auto 1.3 /100 WBC (0.0-0.2); Platelet Count 79 K/mm3 (150-400); RDW Coefficient Variation 14.3 % (11.7-14.2); RDW Standard Deviation 58.4 fL (35.1-46.3); Red Blood Cell Count 3.28 M/mm3 (4.30-5.90); White Blood Cell Count 14.06 K/mm3 (4.00-11.30)
[2021-05-07 09:38] LABS: Albumin, Blood 2.5 g/dL (3.4-5.0); Albumin/Globulin Ratio 0.6 (0.8-1.8); Bilirubin, Total 4.8 mg/dL (0.1-1.0); Bun/Creatinine Ratio 60.7 (12.0-20.0); Calcium, Blood 8.5 mg/dL (8.5-10.1); Creatinine, Blood 1.45 mg/dL (0.60-1.20); Magnesium, Blood 3.2 mg/dL (1.6-2.4); Phosphorus, Blood 3.3 mg/dL (2.5-4.9); Total Protein, Blood 6.5 g/dL (6.4-8.2)
[2021-05-07 09:48] LABS: BASOPHILS PERCENT MAN 0 % (0-2); EOSINOPHILS PERCENT MAN 0 % (0-6); LYMPHOCYTES % ATYPICAL MANUAL 5 % (0-0); LYMPHOCYTES ABSOLUTE MAN 1.68 K/mm3 (0.84-5.20); LYMPHOCYTES PERCENT MAN 7 % (21-46); MONOCYTES ABSOLUTE MAN 0.84 K/mm3 (0.16-1.47); MONOCYTES PERCENT MAN 6 % (4-13); MYELOCYTE ABSOLUTE MAN 0.56 K/mm3 (0.00-0.00); MYELOCYTE PERCENT MAN 4 % (0-0); NEUTROPHILS ABSOLUTE MAN 10.96 K/mm3 (1.96-9.15); SEG NEUTROPHILS PERCENT MAN 78 % (41-73); TOTAL CELLS COUNTED 100
--- NOTE | 2021-05-07 09:48 | NUR ---
PT ALERT AND ORIENTED X3. ABLE TO SPEAK AND MADE NEEDS KNOWN. PERRLA. BILATERAL COST CONSULTANT STRENGTH. DENIES NUMBNESS/TINGLING. ON CPAP SETTINGS 12 AND 100% FIO2 SATING HIGH 90'S. RR 24-30. LUNGS SOUNDING COARSE/DIM. DRY COUGH. TELE SHOWING AFIB WITH HR 70-80'S. BP STABLE. NO SIGNS OF EDEMA. 5 BEAT RUN OF VTACH THIS AM AT 0800. BILATERAL PURPLE FEET IN COLOR. SKIN OVERALL PALE AND FRAGILE WITH SCATTERED BRUISING. BOWEL TONES PRESENT. WILLETT CATH IN PLACE DRAINING GURDEEP URINE TO GRAVITY. ATTENDS IN PLACE. ORAL CARE Q4 AND NEEDED. Q2 TURNING. ACHS BLOOD SUGARS. PATIENT DID VOICE QUESTIONS AND DESIRE TO MOVE TOWARDS COMFORT CARE. WILL SPEAK WITH DOCTOR AND FAMILY. CALL LIGHT IN REACH.
--- NOTE | 2021-05-07 11:00 | NUR ---
Contacted by [facility] financial aid coordinator with request for assist with communicating with Adriana york [phone] re: pt's desire for transition to comfort care. I spoke with Adriana, who supports her dad's wishes. VO for comfort care obtained and entered per Dr Cheung. Family and financial aid coordinator notified and visitation coordinated with family/screeners and auditor in charge. financial aid coordinator to enter comfort care order set.
--- NOTE | 2021-05-07 13:47 | NUR ---
UPDATE: FAMILY AT BEDSIDE COMFORT CARE MEASURES CONTINUED. PATIENT MEDICATED PER EMAR. AT PATIENT AND FAMILY REQUEST MASK REMOVED AT 1249. NURSE AND SASHA AT BEDSIDE. MEDICATING PATIENT NEEDED.
--- NOTE | 2021-05-07 15:23 | NUR ---
Spiritual care visit conducted. Patient is being prepped for removal of airway support when I enter the patient's rm. I provide prayer. I stay with family bedside until patient's demise at 1500. I conduct a life review of patient and provide spiritual guidance, more prayer and grief support. Family grieves appropriately and chooses [facility].
--- NOTE | 2021-05-07 17:10 | NUR ---
FINAL DISCHARGE: COMFORT CARE MEASURES CONTINUED. PATIENT TIME OF 1500. VERIFIED BY TWO RN'S. FAMILY IN ROOM AT TIME. FAMILY ABLE TO SPEND TIME WITH PATIENT. HOME CONFIRMED. POST MORTUM CARE DONE. DONOR LINE CALLED. MACHINE INKER NOTIFIED. FINAL DISCHARGE COMPELETED. HOME IN TO REMELTER PATIENT. FAMILY LEFT WITH ALL PATIENT PERSONAL BELONGINGS.
== END 2021-05-07 16:06 | DRG 177 ==
LOC: ER 04:49 → PCU 05:32
PROVIDERS: Emergency Medicine; Internal Medicine; Internal Medicine Cardiovascular Disease; ADMIT Internal Medicine
PROC: 5A09457 Assistance with Respiratory Ventilation, 24-96 Consecutive Hours, Continuous Positive Airway Pressure (ICD-10-PCS; principal; 2021-05-05)
PROC: 8E0ZXY6 Isolation (ICD-10-PCS; 2021-05-05)
PROC: XW033E5 Introduction of Remdesivir Anti-infective into Peripheral Vein, Percutaneous Approach, New Technology Group 5 (ICD-10-PCS; 2021-05-05)
PROC: 3E0333Z Introduction of Anti-inflammatory into Peripheral Vein, Percutaneous Approach (ICD-10-PCS; 2021-05-05)
DX: U07.1 COVID-19 (principal); J12.82 Pneumonia due to coronavirus disease 2019; I21.4 Non-ST elevation (NSTEMI) myocardial infarction; J96.01 Acute respiratory failure with hypoxia; I50.32 Chronic diastolic (congestive) heart failure; N17.9 Acute kidney failure, unspecified; E87.1 Hypo-osmolality and hyponatremia; R04.2 Hemoptysis; Z66 Do not resuscitate; Z51.5 Encounter for palliative care; I48.91 Unspecified atrial fibrillation; I25.10 Atherosclerotic heart disease of native coronary artery without angina pectoris; D69.6 Thrombocytopenia, unspecified; R74.01 Elevation of levels of liver transaminase levels; I70.8 Atherosclerosis of other arteries; K74.60 Unspecified cirrhosis of liver; R16.1 Splenomegaly, not elsewhere classified; Z87.891 Personal history of nicotine dependence; Z95.1 Presence of aortocoronary bypass graft; Z98.890 Other specified postprocedural states; Z79.82 Long term (current) use of aspirin; Z79.899 Other long term (current) drug therapy; Z86.73 Personal history of transient ischemic attack (TIA), and cerebral infarction without residual deficits
CPT/HCPCS: 36415; 51703; 71045; 71260; 80053; 82550; 82553; 82947; 83735; 83880; 84100; 84145; 84439; 84443; 84481; 84484; 85014; 85018; 85025; 85379; 85610; 85730; 86140; 93005; 93010; 93306; 94660; 94762; 96365; 96375; 99285-25; A9270; C9113; J1100; J1170; J1644; J2060; J2270; J7050; Q9967; U0004